=== PATIENT | male | born 1990 | race Hispanic/Latino ===

== ENCOUNTER 2020-12-14 15:58 | Emergency (ER) | payer BC ==
[~2020-12-14] VITALS: Ht 165.1 cm; Wt 75.8 kg
[2020-12-14] MEDS ORDERED: LEVOFLOXACIN250 MG PO (17:18)
[2020-12-14 18:11] VITALS: BP 146/83
== END 2020-12-14 17:55 | disposition home or self-care (01) ==
LOC: FSED 17:30
DX: S51.812A Laceration without foreign body of left forearm, initial encounter (principal); W29.3XXA Contact with powered garden and outdoor hand tools and machinery, initial encounter; Y92.008 Other place in unspecified non-institutional (private) residence as the place of occurrence of the external cause
CPT/HCPCS: 99283

== ENCOUNTER 2020-12-20 20:45 | Emergency (ER) | payer BC ==
[~2020-12-20] VITALS: Ht 165.1 cm; Wt 75.7 kg
[~2020-12-20 20:45] MED LIST: LEVOFLOXACIN250 MG PO
[2020-12-21 00:39] VITALS: BP 140/90
== END 2020-12-21 00:40 | disposition home or self-care (01) ==
LOC: FSED 21:13
DX: T81.30XA Disruption of wound, unspecified, initial encounter (principal)
CPT/HCPCS: 99283

== ENCOUNTER 2020-12-26 07:47 | Emergency (ER) | payer OTHER, BC ==
[~2020-12-26] VITALS: Ht 167.6 cm; Wt 76.4 kg
[2020-12-26] MEDS ORDERED: LIDOCAINE 1% W/EPINEPHRINE 20 ML VIAL INJ ONE (09:15)
[2020-12-26] MEDS ORDERED: BACITRACIN ZINC 0.9GM TP ONE ×2 (09:15→09:38)
[2020-12-26 09:24] VITALS: BP 146/84
[2020-12-26] MEDS ORDERED: LIDOCAINE HCL 1% LOCAL INJ 20 ML VIAL ONE (09:38)
[2020-12-26] MEDS ORDERED: LIDOCAINE 1% W/EPINEPHRINE 20 ML VIAL ONE (09:38)
== END 2020-12-26 09:23 | disposition home or self-care (01) ==
LOC: FSED 09:00
DX: S01.312A Laceration without foreign body of left ear, initial encounter (principal); W45.8XXA Other foreign body or object entering through skin, initial encounter; Y92.89 Other specified places as the place of occurrence of the external cause
CPT/HCPCS: 12011; 96372; 99283; J2001